=== PATIENT | female | born 1940 | race Caucasian/White ===

== ENCOUNTER → 2018-12-08 18:09 | Outpatient (CLI) | payer MEDICARE ==
[2018-12-08 18:16] LABS: APPEARANCE HAZY (CLEAR); COLOR YELLOW (YELLOW); GLUCOSE 1000 mg/dL (NEGATIVE); NITRITE NEGATIVE (NEGATIVE); PROTEIN NEGATIVE (NEGATIVE); SPECIFIC GRAVITY 1.005 (1.005-1.020)
[2018-12-08 18:17] LABS: BILIRUBIN NEGATIVE (NEGATIVE); KETONE NEGATIVE (NEGATIVE); UROBILINOGEN NORMAL (NORMAL)
[2018-12-08 18:18] LABS: BACTERIA MANY /hpf (NONE SEEN); RED CELLS - URINE 0-5 /hpf (0-5)
== END | disposition home or self-care (01) ==
LOC: D.LABREF 18:09
PROVIDERS: ATTEND Family Medicine
DX: R39.15 Urgency of urination (principal); R30.9 Painful micturition, unspecified; Z87.440 Personal history of urinary (tract) infections

== ENCOUNTER 2019-02-22 22:15 | Inpatient (IN) | payer MEDICARE ==
[~2019-02-22] VITALS: Ht 165.1 cm; Wt 91.2 kg
--- NOTE | 2019-02-22 22:30 | NUR ---
PT CAREGIVER STATES PT WAS TOLD HGB WAS 9.0 AND IF THE PT BECAME SYMPTOMATIC TO REPORT TO ER. CAREGIVER STATES, "SHE HAS BEEN SLEEPING ALL DAY AND INCONTINENT AND SHE USUALLY TAKES CARE OF THAT HERSELF.".
[2019-02-22 23:15] VITALS: BP 187/59
[2019-02-22 23:25] LABS: BASOPHILS 0.1 % (0-2); EOSINOPHILS 0.6 % (0-7); HEMATOCRIT 29.7 % (36.0-48.0); HEMOGLOBIN 9.4 g/dL (12-16); IMMATURE GRANULOCYTES 0.2 % (0-5); LYMPHOCYTES 16.4 % (15-50); MCHC 31.6 g/dL (31.0-37.0); MEAN PLATELET VOLUME 8.9 fL (7.4-10.4); MONOCYTES 8.1 % (2-11); NEUTROPHILS 74.6 % (40-80); PLATELET COUNT 128 10x3/uL (130-400); RBC 2.94 10x6/uL (4.00-5.40); RDW 15.6 % (11.5-14.5)
[2019-02-22 23:44] LABS: ALBUMIN 3.1 g/dL (3.4-5.0); ANION GAP 11.8 mmol/L (8-16); BILIRUBIN - TOTAL 2.07 mg/dL (0.2-1.3); CALCIUM 8.8 mg/dL (8.5-10.1); CARBON DIOXIDE 28.6 mmol/L (21.0-32.0); CREATININE - SERUM 1.6 mg/dL (0.6-1.3); POTASSIUM - SERUM 4.4 mmol/L (3.5-5.1); PROTEIN - SERUM 6.7 g/dL (6.4-8.2)
[2019-02-23] VITALS (7 sets, daily range): BP systolic 127–199; BP diastolic 53–91; Ht 165.1 cm; Wt 91.2 kg
[2019-02-23 00:14] LABS: APPEARANCE CLOUDY (CLEAR); BILIRUBIN NEGATIVE (NEGATIVE); COLOR YELLOW (YELLOW); GLUCOSE 1000 mg/dL (NEGATIVE); KETONE NEGATIVE (NEGATIVE); NITRITE POSITIVE (NEGATIVE); PROTEIN 3+ mg/dL (NEGATIVE); SPECIFIC GRAVITY 1.015 (1.005-1.020); UROBILINOGEN NORMAL (NORMAL)
[2019-02-23 00:15] LABS: BACTERIA MANY /hpf (NEGATIVE); EPITHELIAL CELLS 0-5 /hpf (0-5); RED CELLS - URINE 0-5 /hpf (0-5)
[2019-02-23 00:34] LABS: UDS - AMPHET NEGATIVE QUAL (NEGATIVE); UDS - BARB NEGATIVE QUAL (NEGATIVE); UDS - BENZO NEGATIVE QUAL (NEGATIVE); UDS - COCAINE NEGATIVE QUAL (NEGATIVE); UDS - OPIATE NEGATIVE QUAL (NEGATIVE); UDS - PCP NEGATIVE QUAL (NEGATIVE); UDS - THC NEGATIVE QUAL (NEGATIVE)
--- NOTE | 2019-02-23 02:22 | NUR ---
FAMILY MEMEBER REJI BROOKE [phone]
[2019-02-23] MEDS ORDERED: APAP325 MG PO (04:29)
[2019-02-23] MEDS ORDERED: ALBUTEROL SULF8.5 GM INH (04:30)
[2019-02-23] MEDS ORDERED: ZYLOPRIM100 MG PO (04:31)
[2019-02-23] MEDS ORDERED: BAYER CHEWABLE81 MG PO (04:32)
[2019-02-23] MEDS ORDERED: LIPITOR80 MG PO (04:33)
[2019-02-23] MEDS ORDERED: CAPTOPRIL50 MG PO (04:34)
[2019-02-23] MEDS ORDERED: COREG 3.1253.125 MG PO (04:34)
[2019-02-23] MEDS ORDERED: PLAVIX75 MG PO (04:35)
[2019-02-23] MEDS ORDERED: PEPCID40 MG PO (04:35)
[2019-02-23] MEDS ORDERED: FERROUS FUMARA324 MG PO (04:37)
[2019-02-23] MEDS ORDERED: LASIX20 MG PO (04:38)
[2019-02-23] MEDS ORDERED: GLUCOTROL 5 MG T5 MG PO (04:38)
[2019-02-23] MEDS ORDERED: ANUSOL-HC25 MG RC (04:40)
[2019-02-23] MEDS ORDERED: LEVEMIR FL100 UNIT/1 SC (04:41)
[2019-02-23] MEDS ORDERED: CLARITIN 10 MG10 MG PO (04:42)
[2019-02-23] MEDS ORDERED: LEVOXYL100 MCG PO (04:42)
[2019-02-23] MEDS ORDERED: NITROSTAT0.4 MG SL (04:44)
[2019-02-23] MEDS ORDERED: PROTONIX20 MG PO (04:45)
[2019-02-23] MEDS ORDERED: NYSTATIN OINTME15 GM TOPICAL (04:45)
[2019-02-23] MEDS ORDERED: HEALTHYLAX17 GM PO (04:46)
[2019-02-23] MEDS ORDERED: LIQUITEARS15 ML EACH EYE (04:49)
[2019-02-23] MEDS ORDERED: K-DUR20 MEQ PO (04:50)
[2019-02-23] MEDS ORDERED: PROMETH-CODEIN 65 ML PO (04:53)
[2019-02-23] MEDS ORDERED: ZANAFLEX2 M1 PO (04:55)
[2019-02-23] MEDS ORDERED: ULTRAM50 MG PO (04:57)
[2019-02-23] MEDS ORDERED: KENALOG IN ORABA5 GM TOPICAL (04:58)
--- NOTE | 2019-02-23 07:15 | NUR ---
PT RESTING PEACEFULLY WHEN I ENTERED, BREATHS EVEN REGUALR AND UNLABORED. NO SIGNS OR SYMPTOMS OF ACUTE DISTRESS NOTED AT THIS TIME. NO FAMILY PRESENT AT BEDSIDE. CL IN REACH, SRX2.
--- NOTE | 2019-02-23 08:35 | NUR ---
I CONCUR WITH JUNIOR ELECTRICAL ENGINEER ASSESSMENT OF THIS PATIENT.
--- NOTE | 2019-02-23 09:01 | NUR ---
PT USES WRITING BOARD AND ASL FOR COMMUNICATION, NO COPLAINTS OR CONCERNS THIS AM. ALL QUESTIONS ANSWERED TO THE BEST OF MY ABILITY. NO FAMLILY AT BEDSIDE, PT EATING BREAKFAST.
--- NOTE | 2019-02-23 10:09 | NUR ---
PT RESTING PEACEFULLY AFTER BREAKFAST, NO COMPLAINTS OR CONCERNS. NO FAMILY AT BEDSIDE. CL IN REACH, SRX2.
--- NOTE | 2019-02-23 11:11 | NUR ---
PTS BLOOD SUGAR 316, ATTEMTPED TO CALL DR TO RESTART HER INSULIN, WAS UNABLE TO REACH, WILL TRY AGAIN.
[2019-02-23 13:37] LABS: APTT 24.4 SECONDS (22.8-39.4); INR 1.14 (0.85-1.17); PROTIME 14.1 SECONDS (11.6-15.0)
[2019-02-23 13:44] LABS: % SATURATION 9 % (15-55); IRON 20 ug/dl (35-150); TOTAL IRON BIND CAPACITY 205 ug/dl (260-445); UNSAT IRON BIND CAPACITY 185 ug/dl (150-375)
[2019-02-23 14:09] LABS: CKMB 0.6 U/L (0.0-3.6); TROPONIN-I 0.035 ng/mL (0.000-0.060)
--- NOTE | 2019-02-23 14:17 | NUR ---
PT CONTINUES TO EXHIBIT LETHAGERY. WAKES EASILY TO SMALL SHAKES AND COMMUICATES WITHOUT DIFFICULTY BUT IMMEDIATELY DOZES BACK TO SLEEP. NO COMPLAITNS OR CONCERNS, ALL QUESTIONS ANSWERED TO THE BEST OF MY ABILITY. AID ASSISTED PT IN CLEANING FROM BED. PT NOW CLEAN AND DRY, ONCE AGAIN RESTING PEACEFULLY. CL IN REACH, SRX2.
[2019-02-23 15:17] LABS: BASOPHILS 0.1 % (0-2); EOSINOPHILS 1.2 % (0-7); HEMATOCRIT 26.2 % (36.0-48.0); HEMOGLOBIN 8.2 g/dL (12-16); IMMATURE GRANULOCYTES 0.3 % (0-5); LYMPHOCYTES 21.5 % (15-50); MCH 31.8 pg (26.0-34.0); MCHC 31.3 g/dL (31.0-37.0); MCV 101.6 fL (80.0-100.0); MONOCYTES 9.3 % (2-11); NEUTROPHILS 67.6 % (40-80); PLATELET COUNT 120 10x3/uL (130-400); RBC 2.58 10x6/uL (4.00-5.40); RDW 15.8 % (11.5-14.5)
[2019-02-23 15:18] LABS: WBC 6.8 10x3/uL (4.8-10.8)
[2019-02-23 15:19] LABS: ANION GAP 14.1 mmol/L (8-16); CALCIUM 8.2 mg/dL (8.5-10.1); CARBON DIOXIDE 26.7 mmol/L (21.0-32.0); CREATININE - SERUM 1.7 mg/dL (0.6-1.3); POTASSIUM - SERUM 3.8 mmol/L (3.5-5.1)
--- NOTE | 2019-02-23 17:15 | NUR ---
PT HAS BEEN SLEEPING , EASILY ARROUSABLE TO TOUCH, BUT QUICKLY FALLS BACK TO SLEEP. SPOKE WITH FAMILY THEY STATE THEY'LL COME VISIT HER TOMORROW. CL IN REACH, SRX2. NO FAMILY AT BEDSIDE.
--- NOTE | 2019-02-23 18:27 | NUR ---
CHANGED PTS LINNENS, NOW CLEAN AND DRY. PT HAD SOAKED MOST OF THE BED IN FOWL SMELLING URINE. PT STILL HAVING TROUBLE STAYING AWAY THOUGH WHEN SHE IS AWAKE SHE EASILY ANSWERES QUESTIONS. INFORMED HER HER FAMILY WOULD VISIT TOMORROW. CL IN REACH, SRX2, BED LOW AND LOCKED, ALARM ON. PT REFUSED SUPPER STATING NOT HUNGRY.
--- NOTE | 2019-02-23 19:45 | NUR ---
PT RESTING IN BED ALERT AND ORIENTED X4. PT VITALS STABLE AT THIS TIME. PT COMPLAINS OF SORE THROAT AND HAS A CRACKLING COUGH. PT COMPLAINS OF PAIN GENERALIZED 7/. ST PT UP ON THE SIDE OF THE BED AND TRIEN TO STAND. PT WASN'T ABLE TO STAND LONG COMPLAINS OF PAIN IN LEGS. LOWER BILAT EXTREMITIES PITTING +2 EDEMA. NO S/S AND SYMPTOMS OF DISTRESS AT THIS TIME. BED LOW CALL LIGHT WITHIN REACH WILL CONTINUE TO MONITOR.
[2019-02-23 19:53] LABS: CKMB 0.2 U/L (0.0-3.6); CREATINE KINASE 49 UL (21-215); TROPONIN-I 0.017 ng/mL (0.000-0.060)
[2019-02-24] VITALS: BP 149/63
[2019-02-24 00:53] LABS: CKMB 0.5 U/L (0.0-3.6); CREATINE KINASE 48 UL (21-215); TROPONIN-I 0.028 ng/mL (0.000-0.060)
--- NOTE | 2019-02-24 00:59 | NUR ---
PT COUGHING WITH A WET NON-PRODUCTIVE HACK. WILL CONTINUE TO MONITOR.
--- NOTE | 2019-02-24 02:44 | NUR ---
I have reviewed this patient and I concur with the Shift Assessment completed by the Licensed Practical Nurse today this shift.
[2019-02-24 04:00] VITALS: BP 150/63
[2019-02-24 05:36] LABS: BASOPHILS 0.1 % (0-2); EOSINOPHILS 1.9 % (0-7); HEMATOCRIT 25.9 % (36.0-48.0); HEMOGLOBIN 8.4 g/dL (12-16); IMMATURE GRANULOCYTES 0.1 % (0-5); LYMPHOCYTES 29.3 % (15-50); MCH 32.3 pg (26.0-34.0); MCHC 32.4 g/dL (31.0-37.0); MEAN PLATELET VOLUME 9.1 fL (7.4-10.4); MONOCYTES 11.2 % (2-11); NEUTROPHILS 57.4 % (40-80); PLATELET COUNT 130 10x3/uL (130-400); RDW 15.7 % (11.5-14.5); WBC 8.4 10x3/uL (4.8-10.8)
[2019-02-24 05:59] LABS: MCV 99.6 fL (80.0-100.0)
[2019-02-24 06:11] LABS: ALBUMIN 2.7 g/dL (3.4-5.0); ANION GAP 13.4 mmol/L (8-16); BILIRUBIN - TOTAL 1.08 mg/dL (0.2-1.3); CALCIUM 8.5 mg/dL (8.5-10.1); CARBON DIOXIDE 26.5 mmol/L (21.0-32.0); CREATININE - SERUM 1.6 mg/dL (0.6-1.3); MAGNESIUM - SERUM 1.8 mg/dL (1.8-2.4); POTASSIUM - SERUM 3.9 mmol/L (3.5-5.1); PROTEIN - SERUM 6.2 g/dL (6.4-8.2)
--- NOTE | 2019-02-24 07:25 | NUR ---
REPORT RECEIVED. WILL CONTINUE WITH POC. PT CURRENTLY LYING SEMI FOWLERS. CALL LIGHT W/I REACH. PT IS ASLEEP WITH EYES CLOSED AT THIS TIME. RR EVEN AND UNLABORED ON 2L 02. L.HAND PIV IS SALINE LOCKED. PT DENIES ANY NEEDS AT THIS TIME. NO S/S OF DISTRESS NOTED. WILL CTM.
[2019-02-24 08:50] VITALS: BP 149/75
[2019-02-24 13:42] VITALS: BP 132/57
--- NOTE | 2019-02-24 17:07 | NUR ---
PREVIOUS PIV INFILTRATED. INITIATED NEW PIV TO THE LEFT FOREARM 22GA X1 ATTEMPT. PT TOLERATED WELL. FLUSHED WITH 10ML NS TO CONFIRM PATENCY. IRON CURRENTLY INFUSING. WILL CTM.
[2019-02-24 18:26] VITALS: BP 138/52
--- NOTE | 2019-02-24 19:40 | NUR ---
PT SETTING UP IN BED ALERT AND ORIENTED X4. RR EVEN AND UNLABORED AT THIS TIME. CHUN FARIA CALLED FOR PT'S HARSH PRODUCTIVE COUGH. PT COMPLAINS THAT COUGH IS HURTING CHEST AND THROAT. NEW ORDERS ESTABLISHED. SEE MAR. AT BEDSIDE AND IS ALSO DEAF. BED LOW CALL LIGHT WITHIN REACH. WILL CONTINUE TO MONITOR.
[2019-02-24 20:00] VITALS: BP 154/76
[2019-02-25] VITALS: BP 142/62
--- NOTE | 2019-02-25 02:53 | NUR ---
PT RESTING IN BED WITH EYES CLOSED RR EVEN AND UNLABORED. AT BEDSIDE. NO S/S OF DISTRESS. BED LOW CALL LIGHT WITHIN REACH WILL CONTINUE TO MONITOR.
--- NOTE | 2019-02-25 03:05 | NUR ---
I have reviewed this patient and I concur with the Shift Assessment completed by the Licensed Practical Nurse today this shift.
[2019-02-25 04:30] VITALS: BP 150/54
[2019-02-25 05:55] LABS: BASOPHILS 0.2 % (0-2); EOSINOPHILS 4.8 % (0-7); HEMATOCRIT 23.8 % (36.0-48.0); HEMOGLOBIN 7.8 g/dL (12-16); IMMATURE GRANULOCYTES 0.2 % (0-5); LYMPHOCYTES 25.4 % (15-50); MCHC 32.8 g/dL (31.0-37.0); MONOCYTES 10.3 % (2-11); NEUTROPHILS 59.1 % (40-80); PLATELET COUNT 121 10x3/uL (130-400); RBC 2.44 10x6/uL (4.00-5.40); RDW 15.8 % (11.5-14.5)
[2019-02-25 06:15] LABS: ALBUMIN 2.5 g/dL (3.4-5.0); ANION GAP 10.6 mmol/L (8-16); BILIRUBIN - TOTAL 0.95 mg/dL (0.2-1.3); CALCIUM 7.7 mg/dL (8.5-10.1); CARBON DIOXIDE 27.7 mmol/L (21.0-32.0); CREATININE - SERUM 1.8 mg/dL (0.6-1.3); MAGNESIUM - SERUM 1.8 mg/dL (1.8-2.4); POTASSIUM - SERUM 4.3 mmol/L (3.5-5.1); PROTEIN - SERUM 5.5 g/dL (6.4-8.2)
[2019-02-25 06:32] LABS: MCV 97.5 fL (80.0-100.0)
--- NOTE | 2019-02-25 08:15 | NUR ---
ALERT AND ORIENTED.PT IS DEAF. 02 2 L/M PER NC.LEFT ARM SL. SR 85 ON TELEMERTY. SR UP WITH CALL LIGHT IN REACH. WILL MONITOR
[2019-02-25 08:36] VITALS: BP 155/67
[2019-02-25 12:30] VITALS: BP 141/64
--- NOTE | 2019-02-25 14:35 | MORECARE ---
CASE MANAGEMENT DISCHARGE SUMMARY PATIENT: ERVIN MORRELL UNIT: [id number] ADM DATE: 02/23/19 AGE: 78 : 41 SEX: F ROOM/BED: D.2287 AUTHOR: NANCI MELCHOR PHYSICIAN: REFERRING PHYSICIAN: AZAR BURGESS MD DATE OF SERVICE: 02/25/19 Discharge Plan Patient Name: ERVIN MORRELL Facility: [facility]:[place] : 1940 Planned Disposition: Home Anticipated Discharge Date: Discharge Date: Expected LOS: Initial Reviewer: [email or web address] Initial Review Date: 02/25/2019 Generated: 02/25/19 3:34 pm DCPIA - Discharge Planning Initial Assessment Updated by [id number]: Kayleen Romero on 02/25/19 2:33 pm * PCP VERSER * Preadmission Environment Home with Family * ADLs Independent * Additional services required to return to the preadmission environment? No * Can the patient safely return to the preadmission environment? Yes * Has this patient been hospitalized within the prior 30 days at any hospital? No Patient Name: ERVIN MORRELL Page [id number] at 1435 All edits/amendments must be made on the electronic document DICTATION DATE: 02/25/191433 PER DIEM REGISTERED NURSE: MIKEL 02/25/19 143 RPT#: [id number] DC DATE: STATUS: ADM IN [facility] [address] [place] [address] END OF REPORT
--- NOTE | 2019-02-25 14:44 | MORECARE ---
CASE MANAGEMENT DISCHARGE SUMMARY PATIENT: ERVIN MORRELL UNIT: [id number] ADM DATE: 02/23/19 AGE: 78 : 41 SEX: F ROOM/BED: D.4068 AUTHOR: NANCI MELCHOR PHYSICIAN: REFERRING PHYSICIAN: AZAR BURGESS MD DATE OF SERVICE: 02/25/19 Discharge Plan Patient Name: ERVIN MORRELL Facility: [facility]:[place] : 1940 Planned Disposition: Home Anticipated Discharge Date: Discharge Date: Expected LOS: Initial Reviewer: [email or web address] Initial Review Date: 02/25/2019 Generated: 02/25/19 3:43 pm Comments DCP- Discharge Planning Updated by [email or web address]: Kayleen Romero on 02/25/19 1:[address] Patient Name: ERVIN MORRELL Admission Status: ER Accout number: [id number] Admission Date: 02-23-2019 : 1940 Admission Diagnosis: Attending: RAUL Current LOS: 2 Anticipated DC Date: Planned Disposition: Home Primary Insurance: MEDICARE A & B Discharge Planning Comments: CM MET WITH PATIENT AND HER AFTER EXPLAINING CM ROLE AND OBTAINING WRITTEN CONSENT. PATIENT AND HER ARE BOTH DEAF. I COMMUNICATED WITH THEM BY WRITING ON A NOTE PAD BACK AND FORTH. DENIES ANY NEEDS FOR EQUIPMENT, HH OR REHAB. BY LOOKING AT HER MEDICAL CHART SHE WOULD PROBABLY BENEFIT FROM REHAB OR HOME HEALTH IF SHE IS AGREEABLE. SHE IS VERY DROWSY AT THIS TIME. CM WILL FOLLOW AND ASSIST NEEDED. Certified Medical Transcriptionist: Kayleen Romero DCPIA - Discharge Planning Initial Assessment Updated by [id number]: Kayleen Romero on 02/25/19 2:33 pm * PCP VERSER * Preadmission Environment Home with Family * ADLs Independent * Additional services required to return to the preadmission environment? No * Can the patient safely return to the preadmission environment? Yes * Has this patient been hospitalized within the prior 30 days at any hospital? No Last DP export: 02/25/19 1:35 Patient Name: ERVIN MORRELL Page [id number] at 1444 All edits/amendments must be made on the electronic document DICTATION DATE: 02/25/191442 HOME CARE COORDINATOR: MIKEL 02/25/191442 RPT#: [id number] [place] DATE: STATUS: ADM IN [facility] [address] [place] [address] END OF REPORT
--- NOTE | 2019-02-25 15:36 | MORECARE ---
CASE MANAGEMENT DISCHARGE SUMMARY PATIENT: ERVIN MORRELL UNIT: [id number] ADM DATE: 02/23/19 AGE: 78 : 41 SEX: F ROOM/BED: D.9397 AUTHOR: RUIZDOC PHYSICIAN: REFERRING PHYSICIAN: AZAR BURGESS MD DATE OF SERVICE: 02/25/19 Discharge Plan Patient Name: ERVIN MORRELL Facility: [facility]:[place] : 1940 Planned Disposition: Home Anticipated Discharge Date: Discharge Date: Expected LOS: Initial Reviewer: [email or web address] Initial Review Date: 02/25/2019 Generated: 02/25/19 4:36 pm Comments DCP- Discharge Planning Updated by [email or web address]: Kayleen Romero on 02/25/19 2:[address] Patient Name: ERVIN MORRELL Admission Status: ER Accout number: [id number] Admission Date: 02-23-2019 : 1940 Admission Diagnosis: Attending: RAUL Current LOS: 2 Anticipated DC Date: Planned Disposition: Home Primary Insurance: MEDICARE A & B Discharge Planning Comments: CM MET WITH PATIENT AND HER AFTER EXPLAINING CM ROLE AND OBTAINING WRITTEN CONSENT. PATIENT AND HER ARE BOTH DEAF. I COMMUNICATED WITH THEM BY WRITING ON A NOTE PAD BACK AND FORTH. DENIES ANY NEEDS FOR EQUIPMENT, HH OR REHAB. BY LOOKING AT HER MEDICAL CHART SHE WOULD PROBABLY BENEFIT FROM REHAB OR HOME HEALTH IF SHE IS AGREEABLE. SHE IS VERY DROWSY AT THIS TIME. CM WILL FOLLOW AND ASSIST NEEDED. Stock Transfer Clerk: Kayleen Romero Appended by Kayleen Romero on 02/25/2019 15:30 RUNWAY MODEL: I SPOKE WITH PATIENT'S SON BRAYAN MORRELL AND HE STATES WOULD LIKE HIS MOM TO GO TO [facility] WHEN DISCHARGED. DCPIA - Discharge Planning Initial Assessment Updated by [id number]: Kayleen Romero on 02/25/19 2:33 pm * PCP VERSER * Preadmission Environment Home with Family * ADLs Independent * Additional services required to return to the preadmission environment? No * Can the patient safely return to the preadmission environment? Yes * Has this patient been hospitalized within the prior 30 days at any hospital? No External Providers External Provider: [facility] Next Contact Date: Service Request Date: Service Type: Resolution: Reviewer: Comments: Coverage Notice Reviewer: [id number] Linda Romero Notice Issued Date-Time: 02/25/2019 15:30 Notice Type: Patient Choice Letter Notice Delivered To: Family Member Relationship to Patient: Son Senior Clinician Name: BRAYAN MORRELL Delivery Method: PHONE - Phone Teresita Days: Prior Verbal Notification: Recipient Understood Notice: Recipient Signature: Med Rec Note Co-signed by Attending: Coverage Notice Comment: VERBAL LIA FOR [facility] Last DP export: 02/25/19 1:44 Patient Name: ERVIN MORRELL Page 00426 at 1536 All edits/amendments must be made on the electronic document DICTATION DATE: 02/25/19 153 ASSEMBLER HYDRAULIC BACKHOE: MIKEL 02/25/19 1535 RPT#: [id number] DC DATE: STATUS: ADM IN [facility] [address] [place] [address] END OF REPORT
[2019-02-25 16:07] VITALS: BP 153/49
[2019-02-25 20:03] VITALS: BP 117/45
--- NOTE | 2019-02-25 20:22 | NUR ---
INITIAL ROUNDS COMPLETED AT 191 HRS. PT RESTING WITH EYES CLOSED. RESP EVEN AND REGULAR. AT BEDSIDE. BOTH AND PT ARE DEAF. ASSESSMENT COMPLETED AT 1954 HRS. INFORMED PT NEEDED TO START IV BY WRITING ON SOME PAPER. PT NODDED UNDERSTANDING. SR PER CM HR 78. ALERT AND ORIENTED. DOMINGUEZ. LUNGS WITH SCATTERED RHONCH IN UPPER LOBES, DIMINISHED IN LOWER LOBES. NON-PRODUCTIVE COUGH NOTED. 1+ PEDAL EDEMA NOTED. PT INCONTINENT OF URINE. INCONTINENT CARE DONE. NEW IV STARTED WITH ATTEMPT X2 #20 TO L UPPER ARM. PT TOLERATED ACTIVITY WELL. SR UP X3, CALL LIGHT WITHIN REACH.
--- NOTE | 2019-02-25 21:45 | NUR ---
PM SNACK SERVED. PM MEDS IGVEN INCLUDING 6 UNITS REG INSULIN FOR BS OF 270. AT BEDSIDE.
--- NOTE | 2019-02-26 00:17 | NUR ---
PT WATCHING TV. NO DISTRESS NOTED. SR UP X2,CALL LIGHT WITHIN REACH.
[2019-02-26 00:30] VITALS: BP 147/55
--- NOTE | 2019-02-26 02:02 | NUR ---
ROCEPHIN 1GM IVPB INITIATED. PT AWAKE, NO DISTRESS NOTED. SR UP X2, CALL LIGHT WITHIN REACH.
--- NOTE | 2019-02-26 04:12 | NUR ---
PT INCONTINENT OF URINE. INCONTINENT CARE DONE. PT TOLERATED ACTIVITY WELL. SR UP X2, CALL LIGHT WITHIN REACH.
[2019-02-26 04:46] VITALS: BP 166/52
--- NOTE | 2019-02-26 05:19 | NUR ---
PT INCONTINENT OF URINE. INCONTINENT CARE DONE. PT TOLERATED ACTIVITY WELL.
--- NOTE | 2019-02-26 06:50 | NUR ---
PT INCONTINENT OF URINE X3 DURING SHIFT. AM FSBS 181. 2 UNITS REG I NSULIN GIVEN SUB-Q TO R ARM. NEEDS MET; WILL CONTINUE TO MONITOR.
[2019-02-26 07:04] LABS: ALBUMIN 2.4 g/dL (3.4-5.0); ANION GAP 10.8 mmol/L (8-16); BILIRUBIN - TOTAL 0.6 mg/dL (0.2-1.3); CALCIUM 8.4 mg/dL (8.5-10.1); CARBON DIOXIDE 26.1 mmol/L (21.0-32.0); CREATININE - SERUM 1.5 mg/dL (0.6-1.3); MAGNESIUM - SERUM 1.9 mg/dL (1.8-2.4); POTASSIUM - SERUM 3.9 mmol/L (3.5-5.1)
[2019-02-26 07:19] LABS: BASOPHILS 0 % (0-2); EOSINOPHILS 3.1 % (0-7); HEMATOCRIT 22.9 % (36.0-48.0); IMMATURE GRANULOCYTES 0.3 % (0-5); MCH 31.4 pg (26.0-34.0); MCHC 32.3 g/dL (31.0-37.0); MEAN PLATELET VOLUME 9.4 fL (7.4-10.4); MONOCYTES 8.4 % (2-11); NEUTROPHILS 55.2 % (40-80); PLATELET COUNT 131 10x3/uL (130-400); RBC 2.36 10x6/uL (4.00-5.40); RDW 15.2 % (11.5-14.5); WBC 6.2 10x3/uL (4.8-10.8)
[2019-02-26 07:23] LABS: HEMOGLOBIN 7.4 g/dL (12-16)
--- NOTE | 2019-02-26 07:50 | NUR ---
ALERT AND ORIENTED. PT IS DEAF. TELEMERTY SHOWS SR 77. 02 AT 2 L/M PER NC.2PLUS EDEMA TO FEET. SR UP WITH CALL LIGHT IN REACH. WILL MONITOR
[2019-02-26 08:00] VITALS: BP 150/51
[2019-02-26 12:00] VITALS: BP 143/56
--- NOTE | 2019-02-26 15:36 | NUR ---
LYING QUIETLY WITH EYES CLOSED, NO DISTRESS NOTED. TELEMERY SHOWING SR 74
[2019-02-26 16:00] VITALS: BP 146/60
--- NOTE | 2019-02-26 16:00 | NUR ---
rehab prescreen: this patient has medicare insurance and walked 6 feet 2 days ago and hasnt perticipated with therapy since. admitted with AMS and severe UTI. her H/H is critical low as per am labs. Patient will need to be able to tolerate the 3 hours therapy required by medicare guidelines. Will monitor her progress and check on her stability. thank you for this eval. mona quinn lpn clinical liasion
--- NOTE | 2019-02-26 20:08 | NUR ---
INITIAL ROUNDS COMPLETED AT 1910 HRS. PT DENIED ANY DISCOMFORT. ASSESSMENT COMPLETED AT 1950 HRS. VSS. SR PER CM HR 77. ALERT AND ORIENTED. PT IS DEAF. LUNGS DIMINISHED IN BASES BILAT. ABD SOFT WITH ACTIVE BS NOTED. 2+ EDEMA TO FEET. PT INCONTINENT OF URINE. INCONTINENT CARE DONE. PT TURNED SELF WITHOUT DIFFICULTY. SPOUSE ALSO DEAF. SR UP X2, CALL LIGHT WITHIN REACH.
[2019-02-26 20:30] VITALS: BP 160/58
--- NOTE | 2019-02-26 21:39 | NUR ---
FSBS 230. 4 UNITS REG INSULIN GIVEN SUB-Q TO UPPER L ARM PER S/S. PM MEDS GIVEN. PT SWALLOWED WITHOUT DIFFICULTY. SR UP X2, CALL LIGHT WITHIN REACH.
[2019-02-27 00:13] VITALS: BP 157/48
--- NOTE | 2019-02-27 00:49 | NUR ---
PT RESTING WITH EYES CLOSED. RESP EVEN AND REGULAR. SR UP X2, CALL LIGHT WITHIN REACH.
--- NOTE | 2019-02-27 02:27 | NUR ---
PT HAS C/O CORREA. ULTRAM 50MG PO GIVEN. PT INCONTINENT OF URINE. INCONTINENT CARE DONE. SR UP X3, CALL LIGHT WITHIN REACH.
--- NOTE | 2019-02-27 04:19 | NUR ---
PT RESTING WITH EYES CLOSED. RESP EVEN AND REGULAR. SR UP X3, CALL LIGHT WITHIN REACH.
[2019-02-27 04:26] VITALS: BP 142/50
--- NOTE | 2019-02-27 06:08 | NUR ---
VSS THROUGHOUT NIGHT. SR PER CM. PT MOTIONED THAT ULTRAM ALLEVIATED CORREA. NEEDS MET; WILL CONTINUE TO MONITOR.
--- NOTE | 2019-02-27 06:28 | NUR ---
PT INCONTINENT OF URINE. INCONTINENT CARE DONE. PT TOLERATED ACTIVITY WELL. AM FSBS 135. NO COVERAGE NEEDED. SR UP X2, CALL LIGHT WITHIN REACH.
[2019-02-27 06:31] LABS: BASOPHILS 0.2 % (0-2); EOSINOPHILS 3.9 % (0-7); HEMATOCRIT 23.8 % (36.0-48.0); HEMOGLOBIN 7.8 g/dL (12-16); IMMATURE GRANULOCYTES 0.3 % (0-5); LYMPHOCYTES 31.6 % (15-50); MCH 32.9 pg (26.0-34.0); MCHC 32.8 g/dL (31.0-37.0); MONOCYTES 8.6 % (2-11); NEUTROPHILS 55.4 % (40-80); PLATELET COUNT 150 10x3/uL (130-400); RBC 2.37 10x6/uL (4.00-5.40); RDW 15.4 % (11.5-14.5); WBC 6.4 10x3/uL (4.8-10.8)
[2019-02-27 06:36] LABS: MCV 100.4 fL (80.0-100.0)
[2019-02-27 06:48] LABS: ALBUMIN 2.3 g/dL (3.4-5.0); ANION GAP 8.2 mmol/L (8-16); BILIRUBIN - TOTAL 0.46 mg/dL (0.2-1.3); CALCIUM 8.4 mg/dL (8.5-10.1); CARBON DIOXIDE 30.1 mmol/L (21.0-32.0); CREATININE - SERUM 1.5 mg/dL (0.6-1.3); MAGNESIUM - SERUM 2.1 mg/dL (1.8-2.4); POTASSIUM - SERUM 4.3 mmol/L (3.5-5.1)
--- NOTE | 2019-02-27 07:00 | NUR ---
PT LYING IN BED. EYES CLOSED. CHEST RISING AND FALLING. IN RECLINER CHAIR ASLEEP. PT IS DEAF. PT WEARING O2 AT 2L VIA NC. 86 SR ON TELEMETRY. BED LOW. CL IN REACH. WILL CONTINUE TO MONITOR.
[2019-02-27 10:42] VITALS: BP 160/50
--- NOTE | 2019-02-27 11:07 | NUR ---
I have reviewed this patient and I concur with the Shift Assessment completed by the Licensed Practical Nurse today this shift.
--- NOTE | 2019-02-27 11:56 | NUR ---
Rehab Note- Acute Inpatient Rehab prescreen order received. The patient and family are planning for her to discharge to [facility] where her daughter works and plan to transition her into a LTC resident. Spoke to FILI Fuller. Thank you for this referral! Rachael Stein RN Clinical Liaison, [facility] Rehab
[2019-02-27] MEDS ORDERED: CIPRO500 MG PO (12:23)
--- NOTE | 2019-02-27 12:54 | MORECARE ---
CASE MANAGEMENT DISCHARGE SUMMARY PATIENT: ERVIN MORRELL UNIT: [id number] ADM DATE: 02/23/19 AGE: 78 : 41 SEX: F ROOM/BED: D.5084 AUTHOR: RUIZDOC PHYSICIAN: REFERRING PHYSICIAN: AZAR BURGESS MD DATE OF SERVICE: 02/27/19 Discharge Plan Patient Name: ERVIN MORRELL Facility: [facility]:[place] : 1940 Planned Disposition: [facility] Facility Anticipated Discharge Date: 02/27/19 Discharge Date: Expected LOS: 4 Initial Reviewer: [email or web address] Initial Review Date: 02/25/2019 Generated: 02/27/19 1:54 pm DCP- Discharge Planning Updated by [id number]: Kayleen Romero on 02/25/19 2:[address] Patient Name: ERVIN MORRELL Admission Status: ER Accout number: [id number] Admission Date: 02-23-2019 : 1940 Admission Diagnosis: Attending: RAUL Current LOS: 2 Anticipated DC Date: Planned Disposition: Home Primary Insurance: MEDICARE A & B Discharge Planning Comments: CM MET WITH PATIENT AND HER AFTER EXPLAINING CM ROLE AND OBTAINING WRITTEN CONSENT. PATIENT AND HER ARE BOTH DEAF. I COMMUNICATED WITH THEM BY WRITING ON A NOTE PAD BACK AND FORTH. DENIES ANY NEEDS FOR EQUIPMENT, HH OR REHAB. BY LOOKING AT HER MEDICAL CHART SHE WOULD PROBABLY BENEFIT FROM REHAB OR HOME HEALTH IF SHE IS AGREEABLE. SHE IS VERY DROWSY AT THIS TIME. CM WILL FOLLOW AND ASSIST NEEDED. Tube Bender: Kayleen Romero Appended by Kayleen Romero on 02/25/2019 15:30 FIELD COORDINATOR: I SPOKE WITH PATIENT'S SON BRAYAN MORRELL AND HE STATES WOULD LIKE HIS MOM TO GO TO [facility] WHEN DISCHARGED. DCPIA - Discharge Planning Initial Assessment Updated by [email or web address]: Kayleen Romero on 02/25/19 2:33 pm * PCP VERSER * Preadmission Environment Home with Family * ADLs Independent * Additional services required to return to the preadmission environment? No * Can the patient safely return to the preadmission environment? Yes * Has this patient been hospitalized within the prior 30 days at any hospital? No Coverage Notice Reviewer: [id number] Linda Romero Notice Issued Date-Time: 02/25/2019 15:30 Notice Type: Patient Choice Letter Notice Delivered To: Family Member Relationship to Patient: Son Drug Abuse Social Worker Name: BRAYAN MORRELL Delivery Method: PHONE - Phone Teresita Days: Prior Verbal Notification: Recipient Understood Notice: Recipient Signature: Med Rec Note Co-signed by Attending: Coverage Notice Comment: VERBAL LIA FOR [facility] Last DP export: 02/25/19 2:36 Patient Name: ERVIN MORRELL Page 52102 at 1254 All edits/amendments must be made on the electronic document DICTATION DATE: 02/27/19 1254 PORTAL ADMINISTRATOR: MIKEL 02/27/19 1254 RPT#: [id number] DC DATE: STATUS: ADM IN [facility] [address] [place] [address] END OF REPORT
--- NOTE | 2019-02-27 13:17 | MORECARE ---
CASE MANAGEMENT DISCHARGE SUMMARY PATIENT: ERVIN MORRELL UNIT: [id number] ADM DATE: 02/23/19 AGE: 78 : 41 SEX: F ROOM/BED: D.8365 AUTHOR: NANCI MELCHOR PHYSICIAN: REFERRING PHYSICIAN: AZAR BURGESS MD DATE OF SERVICE: 02/27/19 Discharge Plan Patient Name: ERVIN MORRELL Facility: [facility]:[place] : 1940 Planned Disposition: [facility] Facility Anticipated Discharge Date: 02/27/19 Discharge Date: Expected LOS: 4 Initial Reviewer: [email or web address] Initial Review Date: 02/25/2019 Generated: 02/27/19 2:17 pm Comments DCP- Discharge Planning Updated by [id number]: Jayro Jacobo on 02/27/19 12:[address] Patient Name: ERVIN MORRELL Encounter No: [id number] : 1940 Primary Insurance: MEDICARE A & B Anticipated DC Date: 02-27-2019 Planned Disposition: [facility] Facility External Planned Provider: [facility], MEDICARE REHAB BED DCP follow-up note: CM RECEIVED ORDER FOR INPATIENT REHAB PRESCREENING. CM MET WITH PT, PT'S SPOUSE AND PT'S SON IN ROOM. PT PROVIDED PERMISSION TO DISCUSS HER CARE AND DISCHARGE PLANNING WITH AND IN PRESENCE OF HER SPOUSE AND SON (BRAYAN). CM DISCUSSED REHAB PRESCREENING ORDER, AVAILABILITY OF HOME HEALTH, REHAB SERVICES AND MEDICAL EQUIPMENT. PT WANTS REHAB AT [facility] THE GOAL IS EVENTALLY FOR SHE AND HER SPOUSE TO HAVE CORRECTION CARE AT [facility] TOGETHER. IMPORTANT MESSAGE FROM MEDICARE PROVIDED AND EXPLAINED. CHOICE SIGNED FOR [facility]. CM FAXED DISCHARGE AND REFERRAL INFORMATION TO [facility] AT [phone]. CM NOTIFIED JAKE OF [facility] AT [phone] OF REFERRAL AND PT IS DISCHARGING TODAY. CM WAITING ADMISSION DETERMINATION FROM [facility]. Jayro Jacobo CASE MANAGEMENT DCP- Discharge Planning Updated by [id number]: Kayleen Romero on 02/25/19 2:[address] Patient Name: ERVIN MORRELL Admission Status: ER Accout number: [id number] Admission Date: 02-23-2019 : 1940 Admission Diagnosis: Attending: RAUL Current LOS: 2 Anticipated DC Date: Planned Disposition: Home Primary Insurance: MEDICARE A & B Discharge Planning Comments: CM MET WITH PATIENT AND HER AFTER EXPLAINING CM ROLE AND OBTAINING WRITTEN CONSENT. PATIENT AND HER ARE BOTH DEAF. I COMMUNICATED WITH THEM BY WRITING ON A NOTE PAD BACK AND FORTH. DENIES ANY NEEDS FOR EQUIPMENT, HH OR REHAB. BY LOOKING AT HER MEDICAL CHART SHE WOULD PROBABLY BENEFIT FROM REHAB OR HOME HEALTH IF SHE IS AGREEABLE. SHE IS VERY DROWSY AT THIS TIME. CM WILL FOLLOW AND ASSIST NEEDED. Lap Winder: Kayleen Romero Appended by Kayleen Romero on 02/25/2019 15:30 VIDEO SYSTEMS ENGINEER: I SPOKE WITH PATIENT'S SON BRAYAN MORRELL AND HE STATES WOULD LIKE HIS MOM TO GO TO [facility] WHEN DISCHARGED. DCPIA - Discharge Planning Initial Assessment Updated by [id number]: Kayleen Romero on 02/25/19 2:33 pm * PCP VERSER * Preadmission Environment Home with Family * ADLs Independent * Additional services required to return to the preadmission environment? No * Can the patient safely return to the preadmission environment? Yes * Has this patient been hospitalized within the prior 30 days at any hospital? No Coverage Notice Reviewer: [id number] - Kayleen Romero Notice Issued Date-Time: 02/25/2019 15:30 Notice Type: Patient Choice Letter Notice Delivered To: Family Member Relationship to Patient: Son Erisa Attorney Name: BRAYAN MORRELL Delivery Method: PHONE - Phone Teresita Days: Prior Verbal Notification: Recipient Understood Notice: Recipient Signature: Med Rec Note Co-signed by Attending: Coverage Notice Comment: VERBAL LIA FOR [facility] Reviewer: [id number] Linda Jacobo Notice Issued Date-Time: 02/27/2019 9:50 Notice Type: IM Discharge Notice Notice Delivered To: Patient Relationship to Patient: Erisa Attorney Name: Delivery Method: HAND - Hand Delivered Teresita Days: Prior Verbal Notification: Recipient Understood Notice: Yes Recipient Signature: Yes Med Rec Note Co-signed by Attending: Coverage Notice Comment: Reviewer: [email or web address] Linda Jacobo Notice Issued Date-Time: 02/27/2019 9:50 Notice Type: Patient Choice Letter Notice Delivered To: Patient Relationship to Patient: Erisa Attorney Name: Delivery Method: HAND - Hand Delivered Teresita Days: Prior Verbal Notification: Recipient Understood Notice: Yes Recipient Signature: Yes Med Rec Note Co-signed by Attending: Coverage Notice Comment: [facility] Last DP export: 02/27/19 11:54 a Patient Name: ERVIN MORRELL Page [phone] at 1317 All edits/amendments must be made on the electronic document DICTATION DATE: 02/27/191316 PROCESS MECHANIC: MIKEL 02/27/197 RPT#: [id number] DC DATE: STATUS: ADM IN [facility] [address] [place] [address] END OF REPORT
[2019-02-27 13:34] VITALS: BP 140/87
--- NOTE | 2019-02-27 13:59 | MORECARE ---
CASE MANAGEMENT DISCHARGE SUMMARY PATIENT: ERVIN MORRELL UNIT: [id number] ADM DATE: 02/23/19 AGE: 78 : 41 SEX: F ROOM/BED: D.9571 AUTHOR: RUIZ,DOC PHYSICIAN: REFERRING PHYSICIAN: AZAR BURGESS MD DATE OF SERVICE: 02/27/19 Discharge Plan Patient Name: ERVIN MORRELL Facility: [facility]:[place] : 1940 Planned Disposition: Shelter Facility Anticipated Discharge Date: 02/27/19 Discharge Date: Expected LOS: 4 Initial Reviewer: [id number] Initial Review Date: 02/25/2019 Generated: 02/27/19 2:59 pm Comments DCP- Discharge Planning Updated by [id number]: Jayro Jacobo on 02/27/19 12:[address] Patient Name: ERVIN MORRELL Encounter No: [id number] : 1940 Primary Insurance: MEDICARE A & B Anticipated DC Date: 02-27-2019 Planned Disposition: Shelter Facility External Planned Provider: [facility], MEDICARE REHAB BED DCP follow-up note: CM RECEIVED ORDER FOR INPATIENT REHAB PRESCREENING. CM MET WITH PT, PT'S SPOUSE AND PT'S SON IN ROOM. PT PROVIDED PERMISSION TO DISCUSS HER CARE AND DISCHARGE PLANNING WITH AND IN PRESENCE OF HER SPOUSE AND SON (BRAYAN). CM DISCUSSED REHAB PRESCREENING ORDER, AVAILABILITY OF HOME HEALTH, REHAB SERVICES AND MEDICAL EQUIPMENT. PT WANTS REHAB AT [facility] THE GOAL IS EVENTALLY FOR SHE AND HER SPOUSE TO HAVE [facility] CARE AT [facility] TOGETHER. IMPORTANT MESSAGE FROM MEDICARE PROVIDED AND EXPLAINED. CHOICE SIGNED FOR [facility]. CM FAXED DISCHARGE AND REFERRAL INFORMATION TO [facility] AT [phone]. CM NOTIFIED JAKE OF [facility] AT [phone] OF REFERRAL AND PT IS DISCHARGING TODAY. CM WAITING ADMISSION DETERMINATION FROM [facility]. Jayro Jacobo, CASE MANAGEMENT Appended by Jayro Jacobo on 02/27/2019 13:56 RADIATION THERAPIST: CM SPOKE TO JAKE AT [facility], THEY HAVE NOT YET RECEIVED FAX. CM FAXED MANUALLY TO [facility] AT [phone]. CM FAXED ELECTRONICALLY TO [facility] FAX OF [phone]. CM WAITING ADMISSION DETERMINATION FROM [facility]. Jayro Jacobo, CASE MANAGEMENT DCP- Discharge Planning Updated by [id number]: Kayleen Romero on 02/25/19 2:[address] Patient Name: ERVIN MORRELL Admission Status: ER Accout number: [id number] Admission Date: 02-23-2019 : 1940 Admission Diagnosis: Attending: RAUL Current LOS: 2 Anticipated DC Date: Planned Disposition: Home Primary Insurance: MEDICARE A & B Discharge Planning Comments: CM MET WITH PATIENT AND HER AFTER EXPLAINING CM ROLE AND OBTAINING WRITTEN CONSENT. PATIENT AND HER ARE BOTH DEAF. I COMMUNICATED WITH THEM BY WRITING ON A NOTE PAD BACK AND FORTH. DENIES ANY NEEDS FOR EQUIPMENT, HH OR REHAB. BY LOOKING AT HER MEDICAL CHART SHE WOULD PROBABLY BENEFIT FROM REHAB OR HOME HEALTH IF SHE IS AGREEABLE. SHE IS VERY DROWSY AT THIS TIME. CM WILL FOLLOW AND ASSIST NEEDED. Interior Assemblies Installer: Kayleen Roemro Appended by Kayleen Romero on 02/25/2019 15:30 RADIATION THERAPIST: I SPOKE WITH PATIENT'S SON BRAYAN MORRELL AND HE STATES WOULD LIKE HIS MOM TO GO TO [facility] WHEN DISCHARGED. DCPIA - Discharge Planning Initial Assessment Updated by [id number]: Kayleen Romero on 02/25/19 2:33 pm * PCP VERSER * Preadmission Environment Home with Family * ADLs Independent * Additional services required to return to the preadmission environment? No * Can the patient safely return to the preadmission environment? Yes * Has this patient been hospitalized within the prior 30 days at any hospital? No External Providers External Provider: [facility] Next Contact Date: Service Request Date: Service Type: Resolution: Reviewer: Comments: Coverage Notice Reviewer: [id number] - Kayleen Romero Notice Issued Date-Time: 02/25/2019 15:30 Notice Type: Patient Choice Letter Notice Delivered To: Family Member Relationship to Patient: Son Slasher Hand Name: BRAYAN MORRELL Delivery Method: PHONE - Phone Teresita Days: Prior Verbal Notification: Recipient Understood Notice: Recipient Signature: Med Rec Note Co-signed by Attending: Coverage Notice Comment: VERBAL LIA FOR [facility] Reviewer: [id number] - Jayro Jacobo Notice Issued Date-Time: 02/27/2019 9:50 Notice Type: IM Discharge Notice Notice Delivered To: Patient Relationship to Patient: Slasher Hand Name: Delivery Method: HAND - Hand Delivered Teresita Days: Prior Verbal Notification: Recipient Understood Notice: Yes Recipient Signature: Yes Med Rec Note Co-signed by Attending: Coverage Notice Comment: Reviewer: [id number] Linda Jacobo Notice Issued Date-Time: 02/27/2019 9:50 Notice Type: Patient Choice Letter Notice Delivered To: Patient Relationship to Patient: Slasher Hand Name: Delivery Method: HAND - Hand Delivered Teresita Days: Prior Verbal Notification: Recipient Understood Notice: Yes Recipient Signature: Yes Med Rec Note Co-signed by Attending: Coverage Notice Comment: [facility] Last DP export: 02/27/19 12:17 p Patient Name: ERVIN MORRELL Page [id number] at 1359 All edits/amendments must be made on the electronic document DICTATION DATE: 02/27/19 1358 DEPUTY CHIEF COUNSEL: MIKEL 02/27/19 1358 RPT#: [id number] DC DATE: STATUS: ADM IN [facility] [address] [place] [address] END OF REPORT
--- NOTE | 2019-02-27 15:09 | MORECARE ---
CASE MANAGEMENT DISCHARGE SUMMARY PATIENT: ERVIN MORRELL UNIT: [id number] ADM DATE: 02/23/19 AGE: 78 : 41 SEX: F ROOM/BED: D.2099 AUTHOR: NANCI MELCHOR PHYSICIAN: REFERRING PHYSICIAN: AZAR BURGESS MD DATE OF SERVICE: 02/27/19 Discharge Plan Patient Name: ERVIN MORRELL Facility: [facility]:[place] : 1940 Planned Disposition: Retirement Facility Anticipated Discharge Date: 02/28/19 Discharge Date: Expected LOS: 5 Initial Reviewer: [id number] Initial Review Date: 02/25/2019 Generated: 02/27/19 4:08 pm Comments DCP- Discharge Planning Updated by [id number]: Jayro Jacobo on 02/27/19 2:[address] Patient Name: ERVIN MORRELL Encounter No: [id number] : 1940 Primary Insurance: MEDICARE A & B Anticipated DC Date: 02-28-2019 Planned Disposition: Retirement Facility External Planned Provider: [facility], MEDICARE REHAB BED DCP follow-up note: CM SPOKE TO BRAYAN, PT'S SON, WHO INFORMED CM THAT JAKE OF [facility] INFORMED HIM THAT THEY ARE NOT ABLE TO ACCEPT PT TODAY AND WILL ACCEPT TOMORROW. BRAYAN HAS NOTIFIED PT AND SPOUSE IN ROOM. CM NOTIFIED CHUN LUO. FOR DISCHARGE TO [facility] ON 02-28-19, NURSE REPORT TO BE CALLED TO [facility] AT [phone]. [facility] TO ARRANGE VAN TRANSPORTATION. PRAKASH Sloan DCP- Discharge Planning Updated by [id number]: Jayro Jacobo on 02/27/19 12:[address] Patient Name: ERVIN MORRELL Encounter No: [id number] : 1940 Primary Insurance: MEDICARE A & B Anticipated DC Date: 02-27-2019 Planned Disposition: Retirement Facility External Planned Provider[facility], [facility] DCP follow-up note: CM RECEIVED ORDER FOR INPATIENT REHAB PRESCREENING. CM MET WITH PT, PT'S SPOUSE AND PT'S SON IN ROOM. PT PROVIDED PERMISSION TO DISCUSS HER CARE AND DISCHARGE PLANNING WITH AND IN PRESENCE OF HER SPOUSE AND SON (BRAYAN). CM DISCUSSED REHAB PRESCREENING ORDER, AVAILABILITY OF HOME HEALTH, REHAB SERVICES AND MEDICAL EQUIPMENT. PT WANTS REHAB AT [facility] THE GOAL IS EVENTALLY FOR SHE AND HER SPOUSE TO HAVE CORRECTION CARE AT [facility] TOGETHER. IMPORTANT MESSAGE FROM MEDICARE PROVIDED AND EXPLAINED. CHOICE SIGNED FOR [facility]. CM FAXED DISCHARGE AND REFERRAL INFORMATION TO [facility] AT [phone]. CM NOTIFIED JAKE OF [facility] AT [phone] OF REFERRAL AND PT IS DISCHARGING TODAY. CM WAITING ADMISSION DETERMINATION FROM [facility]. Jayro Jacobo, CASE MANAGEMENT Appended by Jayro Jacobo on 02/27/2019 13:56 DRAFTER MECHANICAL: CM SPOKE TO JAKE AT [facility], THEY HAVE NOT YET RECEIVED FAX. CM FAXED MANUALLY TO [facility] AT [phone]. CM FAXED ELECTRONICALLY TO [facility] FAX OF [phone]. CM WAITING ADMISSION DETERMINATION FROM [facility]. Jayro Jacobo, CASE MANAGEMENT DCP- Discharge Planning Updated by [id number]: Kayleen Romero on 02/25/19 2:[address] Patient Name: ERVIN MORRELL Admission Status: ER Accout number: [id number] Admission Date: 02-23-2019 : 1940 Admission Diagnosis: Attending: RAUL Current LOS: 2 Anticipated DC Date: Planned Disposition: Home Primary Insurance: MEDICARE A & B Discharge Planning Comments: CM MET WITH PATIENT AND HER AFTER EXPLAINING CM ROLE AND OBTAINING WRITTEN CONSENT. PATIENT AND HER ARE BOTH DEAF. I COMMUNICATED WITH THEM BY WRITING ON A NOTE PAD BACK AND FORTH. DENIES ANY NEEDS FOR EQUIPMENT, HH OR REHAB. BY LOOKING AT HER MEDICAL CHART SHE WOULD PROBABLY BENEFIT FROM REHAB OR HOME HEALTH IF SHE IS AGREEABLE. SHE IS VERY DROWSY AT THIS TIME. CM WILL FOLLOW AND ASSIST NEEDED. Special Service Officer: Kayleen Romero Appended by Kayleen Romero on 02/25/2019 15:30 DRAFTER MECHANICAL: I SPOKE WITH PATIENT'S SON BRAYAN MORRELL AND HE STATES WOULD LIKE HIS MOM TO GO TO [facility] SNF WHEN DISCHARGED. DCPIA - Discharge Planning Initial Assessment Updated by [id number]: Kayleen Romero on 02/25/19 2:33 pm * PCP VERSER * Preadmission Environment Home with Family * ADLs Independent * Additional services required to return to the preadmission environment? No * Can the patient safely return to the preadmission environment? Yes * Has this patient been hospitalized within the prior 30 days at any hospital? No Coverage Notice Reviewer: [id number] Linda Romero Notice Issued Date-Time: 02/25/2019 15:30 Notice Type: Patient Choice Letter Notice Delivered To: Family Member Relationship to Patient: Son Colorist Dyer Name: BRAYAN MORRELL Delivery Method: PHONE - Phone Teresita Days: Prior Verbal Notification: Recipient Understood Notice: Recipient Signature: Med Rec Note Co-signed by Attending: Coverage Notice Comment: VERBAL LIA FOR [facility] Reviewer: [id number] Jacobo Notice Issued Date-Time: 02/27/2019 9:50 Notice Type: IM Discharge Notice Notice Delivered To: Patient Relationship to Patient: Colorist Dyer Name: Delivery Method: HAND - Hand Delivered Teresita Days: Prior Verbal Notification: Recipient Understood Notice: Yes Recipient Signature: Yes Med Rec Note Co-signed by Attending: Coverage Notice Comment: Reviewer: [id number] Jacobo Notice Issued Date-Time: 02/27/2019 9:50 Notice Type: Patient Choice Letter Notice Delivered To: Patient Relationship to Patient: Colorist Dyer Name: Delivery Method: HAND - Hand Delivered Teresita Days: Prior Verbal Notification: Recipient Understood Notice: Yes Recipient Signature: Yes Med Rec Note Co-signed by Attending: Coverage Notice Comment: [facility] Last DP export: 02/27/19 12:59 p Patient Name: ERVIN MORRELL Page 16610 at 1509 All edits/amendments must be made on the electronic document DICTATION DATE: 02/27/19 1508 HOGSHEAD FILLER: DM 02/27/19 1508 RPT#: [id number] DC DATE: STATUS: ADM IN [facility] [address] [place] [address] END OF REPORT
[2019-02-27 18:36] VITALS: BP 138/54
[2019-02-27 20:35] VITALS: BP 131/53
[2019-02-28 00:30] VITALS: BP 151/58
--- NOTE | 2019-02-28 01:10 | NUR ---
RESTING WITH EYES CLOSED, RESPERATIONS EVEN, NO S/S DISTRESS NOTED.
[2019-02-28 04:30] VITALS: BP 152/44
[2019-02-28 06:55] LABS: BASOPHILS 0.2 % (0-2); EOSINOPHILS 2.9 % (0-7); HEMATOCRIT 24.9 % (36.0-48.0); IMMATURE GRANULOCYTES 0.6 % (0-5); LYMPHOCYTES 28.5 % (15-50); MCH 32.5 pg (26.0-34.0); MCHC 32.1 g/dL (31.0-37.0); MCV 101.2 fL (80.0-100.0); MEAN PLATELET VOLUME 9.2 fL (7.4-10.4); MONOCYTES 8.2 % (2-11); NEUTROPHILS 59.6 % (40-80); PLATELET COUNT 165 10x3/uL (130-400); RBC 2.46 10x6/uL (4.00-5.40); RDW 15.4 % (11.5-14.5); WBC 6.2 10x3/uL (4.8-10.8)
[2019-02-28 07:04] LABS: ALBUMIN 2.4 g/dL (3.4-5.0); ANION GAP 11.6 mmol/L (8-16); BILIRUBIN - TOTAL 0.4 mg/dL (0.2-1.3); CALCIUM 8.3 mg/dL (8.5-10.1); CARBON DIOXIDE 30.6 mmol/L (21.0-32.0); CREATININE - SERUM 1.6 mg/dL (0.6-1.3); MAGNESIUM - SERUM 2.1 mg/dL (1.8-2.4); POTASSIUM - SERUM 4.2 mmol/L (3.5-5.1); PROTEIN - SERUM 5.9 g/dL (6.4-8.2)
--- NOTE | 2019-02-28 08:28 | NUR ---
AM MEDS GIVEN AT THIS TIME. PT IN BED, EATING BREAKFAST, DENIES ANY NEEDS AT THIS TIME. CALL LIGHT IN REACH, SPOUSE AT BEDSIDE, NAD NOTED, WILL CONTINUE TO MONITOR.
--- NOTE | 2019-02-28 08:54 | MORECARE ---
CASE MANAGEMENT DISCHARGE SUMMARY PATIENT: ERVIN MORRELL UNIT: [id number] ADM DATE: 02/23/19 AGE: 78 : 41 SEX: F ROOM/BED: D.1659 AUTHOR: NANCI MELCHOR PHYSICIAN: REFERRING PHYSICIAN: AZAR BURGESS MD DATE OF SERVICE: 02/28/19 Discharge Plan Patient Name: ERVIN MORRELL Facility: [facility]:[place] : 1940 Planned Disposition: Retirement Facility Anticipated Discharge Date: 02/28/19 Discharge Date: Expected LOS: 5 Initial Reviewer: [id number] Initial Review Date: 02/25/2019 Generated: 02/28/19 9:54 am Comments DCP- Discharge Planning Updated by [email or web address]: Jayro Jacobo on 02/28/19 7:[address] Patient Name: ERVIN MORRELL Encounter No: [id number] : 1940 Primary Insurance: MEDICARE A & B Anticipated DC Date: 02-28-2019 Planned Disposition: Retirement Facility External Planned Provider: [facility], MEDICARE REHAB BED DCP follow-up note: CM NOTIFIED JAKE OF DISCHARGE ORDER AND FAXED DISCHARGE INFORMATION TO [facility] AT [phone]. JAKE INFORMED CM THAT [facility] WILL NOT HAVE ABSOLUTE CONFIRMATION OF ACCEPTANCE UNTIL 0930 OR 1000 TODAY AND WILL NOTIFY CM. IF AND WHEN ACCEPTED, CM TO NOTIFY NURSE. NURSE REPORT TO BE CALLED TO [facility] AT [phone]. [facility] TO ARRANGE VAN TRANSPORTATION. PRAKASH Sloan DCP- Discharge Planning Updated by [id number]: Jayro Jacobo on 02/27/19 2:[address] Patient Name: ERVIN MORRELL Encounter No: [id number] : 1940 Primary Insurance: MEDICARE A & B Anticipated DC Date: 02-28-2019 Planned Disposition: Retirement Facility External Planned Provider: [facility], MEDICARE REHAB BED DCP follow-up note: CM SPOKE TO BRAYAN, PT'S SON, WHO INFORMED CM THAT JAKE OF [facility] [facility] INFORMED HIM THAT THEY ARE NOT ABLE TO ACCEPT PT TODAY AND WILL ACCEPT TOMORROW. BRAYAN HAS NOTIFIED PT AND SPOUSE IN ROOM. CM NOTIFIED CHUN LUO. FOR DISCHARGE TO [facility] ON 02-28-19, NURSE REPORT TO BE CALLED TO [facility] AT [phone]. [facility] TO ARRANGE VAN TRANSPORTATION. PRAKASH Sloan DCP- Discharge Planning Updated by [id number]: Jayro Jacobo on 02/27/19 12:[address] Patient Name: ERVIN MORRELL Encounter No: [id number] : 1940 Primary Insurance: MEDICARE A & B Anticipated DC Date: 02-27-2019 Planned Disposition: Retirement Facility External Planned Provider: [facility], MEDICARE REHAB BED DCP follow-up note: CM RECEIVED ORDER FOR INPATIENT REHAB PRESCREENING. CM MET WITH PT, PT'S SPOUSE AND PT'S SON IN ROOM. PT PROVIDED PERMISSION TO DISCUSS HER CARE AND DISCHARGE PLANNING WITH AND IN PRESENCE OF HER SPOUSE AND SON (BRAYAN). CM DISCUSSED REHAB PRESCREENING ORDER, AVAILABILITY OF HOME HEALTH, REHAB SERVICES AND MEDICAL EQUIPMENT. PT WANTS REHAB AT [facility] THE GOAL IS EVENTALLY FOR SHE AND HER SPOUSE TO HAVE CORRECTION CARE AT [facility] TOGETHER. IMPORTANT MESSAGE FROM MEDICARE PROVIDED AND EXPLAINED. CHOICE SIGNED FOR [facility]. CM FAXED DISCHARGE AND REFERRAL INFORMATION TO [facility] AT [phone]. CM NOTIFIED JAKE OF [facility] AT [phone] OF REFERRAL AND PT IS DISCHARGING TODAY. CM WAITING ADMISSION DETERMINATION FROM [facility]. Jayro Jacobo CASE MANAGEMENT Appended by Jayro Jacobo on 02/27/2019 13:56 ASSEMBLER BODY: CM SPOKE TO JAKE AT [facility], THEY HAVE NOT YET RECEIVED FAX. CM FAXED MANUALLY TO [facility] AT [phone]. CM FAXED ELECTRONICALLY TO [facility] FAX OF [phone]. CM WAITING ADMISSION DETERMINATION FROM [facility] PRAKASH Sloan DCP- Discharge Planning Updated by [id number]: Kayleen Romero on 02/25/19 2:[address] Patient Name: ERVIN MORRELL Admission Status: ER Accout number: [id number] Admission Date: 02-23-2019 : 1940 Admission Diagnosis: Attending: RAUL Current LOS: 2 Anticipated DC Date: Planned Disposition: Home Primary Insurance: MEDICARE A & B Discharge Planning Comments: CM MET WITH PATIENT AND HER AFTER EXPLAINING CM ROLE AND OBTAINING WRITTEN CONSENT. PATIENT AND HER ARE BOTH DEAF. I COMMUNICATED WITH THEM BY WRITING ON A NOTE PAD BACK AND FORTH. DENIES ANY NEEDS FOR EQUIPMENT, HH OR REHAB. BY LOOKING AT HER MEDICAL CHART SHE WOULD PROBABLY BENEFIT FROM REHAB OR HOME HEALTH IF SHE IS AGREEABLE. SHE IS VERY DROWSY AT THIS TIME. CM WILL FOLLOW AND ASSIST NEEDED. Court Stenographer: Kayleen Romero Appended by Kayleen Romero on 02/25/2019 15:30 ASSEMBLER BODY: I SPOKE WITH PATIENT'S SON BRAYAN MORRELL AND HE STATES WOULD LIKE HIS MOM TO GO TO [facility] WHEN DISCHARGED. DCPIA - Discharge Planning Initial Assessment Updated by [id number]: Kayleen Romero on 02/25/19 2:33 pm * PCP VERSER * Preadmission Environment Home with Family * ADLs Independent * Additional services required to return to the preadmission environment? No * Can the patient safely return to the preadmission environment? Yes * Has this patient been hospitalized within the prior 30 days at any hospital? No Coverage Notice Reviewer: [id number] - Kayleen Romero Notice Issued Date-Time: 02/25/2019 15:30 Notice Type: Patient Choice Letter Notice Delivered To: Family Member Relationship to Patient: Son Conference Planning Manager Name: BRAYAN MORRELL Delivery Method: PHONE - Phone Teresita Days: Prior Verbal Notification: Recipient Understood Notice: Recipient Signature: Med Rec Note Co-signed by Attending: Coverage Notice Comment: VERBAL LIA FOR [facility] Reviewer: [id number] Linda Jacobo Notice Issued Date-Time: 02/27/2019 9:50 Notice Type: IM Discharge Notice Notice Delivered To: Patient Relationship to Patient: Conference Planning Manager Name: Delivery Method: HAND - Hand Delivered Teresita Days: Prior Verbal Notification: Recipient Understood Notice: Yes Recipient Signature: Yes Med Rec Note Co-signed by Attending: Coverage Notice Comment: Reviewer: [id number] Linda Jacobo Notice Issued Date-Time: 02/27/2019 9:50 Notice Type: Patient Choice Letter Notice Delivered To: Patient Relationship to Patient: Conference Planning Manager Name: Delivery Method: HAND - Hand Delivered Teresita Days: Prior Verbal Notification: Recipient Understood Notice: Yes Recipient Signature: Yes Med Rec Note Co-signed by Attending: Coverage Notice Comment: [facility] Last DP export: 02/27/19 2:09 p Patient Name: ERVIN MORRELL Page 14177 at 0854 All edits/amendments must be made on the electronic document DICTATION DATE: 02/28/19853 BLOCK STACKER: MIKEL 02/28/19853 RPT#: [id number] DC DATE: STATUS: ADM IN [facility] [address] [place] [address] END OF REPORT
[2019-02-28 09:24] VITALS: BP 170/56
--- NOTE | 2019-02-28 10:08 | MORECARE ---
CASE MANAGEMENT DISCHARGE SUMMARY PATIENT: ERVIN MORRELL UNIT: [id number] ADM DATE: 02/23/19 AGE: 78 : 42 SEX: F ROOM/BED: D.5309 AUTHOR: NANCI MELCHOR PHYSICIAN: REFERRING PHYSICIAN: AZAR BURGESS MD DATE OF SERVICE: 02/28/19 Discharge Plan Patient Name: ERVIN MORRELL Facility: [facility]:[place] : 1940 Planned Disposition: [facility] Facility Anticipated Discharge Date: 02/28/19 Discharge Date: Expected LOS: 5 Initial Reviewer: [email or web address] Initial Review Date: 02/25/2019 Generated: 02/28/19 11:07 am Comments DCP- Discharge Planning Updated by [id number]: Jayro Jacobo on 02/28/19 9:[address] Patient Name: ERVIN MORRELL Encounter No: [id number] : 1940 Primary Insurance: MEDICARE A & B Anticipated DC Date: 02-28-2019 Planned Disposition: [facility] Facility External Planned Provider: [facility], MEDICARE REHAB BED DCP follow-up note: CM SPOKE TO BRAYAN, PT'S SON, WHO INFORMED CM THAT PT HAS BEEN ACCEPTED AT [facility] FOR REHAB. BRAYAN WILL TEACHER VOCAL BOTH PT AND PT'S SPOUSE FOR TRANSPORT TODAY TO [facility] AT ABOUT 1130 AM. COLD FOOD PACKER NURSE NOTIFIED. NURSE REPORT TO BE CALLED TO [facility] AT [phone]. PT'S SON TO TRANSPORT TO REHAB TODAY AT ABOUT 1130AM. Jayro Jacobo, PRAKASH CHAVARRIA DCP- Discharge Planning Updated by [id number]: Jayro Jacobo on 02/28/19 7:[address] Patient Name: ERVIN MORRELL Encounter No: [id number] : 1940 Primary Insurance: MEDICARE A & B Anticipated DC Date: 02-28-2019 Planned Disposition: [facility] Facility External Planned Provider: [facility], MEDICARE REHAB BED DCP follow-up note: CM NOTIFIED JAKE OF DISCHARGE ORDER AND FAXED DISCHARGE INFORMATION TO [facility] AT [phone]. JAKE INFORMED CM THAT [facility] WILL NOT HAVE ABSOLUTE CONFIRMATION OF ACCEPTANCE UNTIL 0930 OR 1000 TODAY AND WILL NOTIFY CM. IF AND WHEN ACCEPTED, CM TO NOTIFY NURSE. NURSE REPORT TO BE CALLED TO [facility] AT [phone]. [facility] TO ARRANGE VAN TRANSPORTATION. Jayro Jacobo CASE MANAGEMENT DCP- Discharge Planning Updated by [id number]: Jayro Jacobo on 02/27/19 2:[address] Patient Name: ERVIN MORRELL Encounter No: [id number] : 1940 Primary Insurance: MEDICARE A & B Anticipated DC Date: 02-28-2019 Planned Disposition: [facility] Facility External Planned Provider: [facility], MEDICARE REHAB BED DCP follow-up note: CM SPOKE TO BRAYAN, PT'S SON, WHO INFORMED CM THAT JAKE OF [facility] INFORMED HIM THAT THEY ARE NOT ABLE TO ACCEPT PT TODAY AND WILL ACCEPT TOMORROW. BRAYAN HAS NOTIFIED PT AND SPOUSE IN ROOM. CM NOTIFIED CHUN LUO. FOR DISCHARGE TO [facility] ON 02-28-19, NURSE REPORT TO BE CALLED TO [facility] AT [phone]. [facility] TO ARRANGE VAN TRANSPORTATION. Jayro Jacobo CASE MANAGEMENT DCP- Discharge Planning Updated by [id number]: Jayro Jacobo on 02/27/19 12:[address] Patient Name: ERVIN MORRELL Encounter No: [id number] : 1940 Primary Insurance: MEDICARE A & B Anticipated DC Date: 02-27-2019 Planned Disposition: [facility] Facility External Planned Provider: [facility], MEDICARE REHAB BED DCP follow-up note: CM RECEIVED ORDER FOR INPATIENT REHAB PRESCREENING. CM MET WITH PT, PT'S SPOUSE AND PT'S SON IN ROOM. PT PROVIDED PERMISSION TO DISCUSS HER CARE AND DISCHARGE PLANNING WITH AND IN PRESENCE OF HER SPOUSE AND SON (BRAYAN). CM DISCUSSED REHAB PRESCREENING ORDER, AVAILABILITY OF HOME HEALTH, REHAB SERVICES AND MEDICAL EQUIPMENT. PT WANTS REHAB AT [facility] THE GOAL IS EVENTALLY FOR SHE AND HER SPOUSE TO HAVE [facility] CARE AT [facility] TOGETHER. IMPORTANT MESSAGE FROM MEDICARE PROVIDED AND EXPLAINED. CHOICE SIGNED FOR [facility]. CM FAXED DISCHARGE AND REFERRAL INFORMATION TO [facility] AT [phone]. CM NOTIFIED JAKE OF [facility] AT [phone] OF REFERRAL AND PT IS DISCHARGING TODAY. CM WAITING ADMISSION DETERMINATION FROM [facility]. Jayro Jcaobo, CASE MANAGEMENT Appended by Jayro Jacobo on 02/27/2019 13:56 RADIO INSTALLER AUTOMOBILE: CM SPOKE TO JAKE AT [facility], THEY HAVE NOT YET RECEIVED FAX. CM FAXED MANUALLY TO [facility] AT [phone]. CM FAXED ELECTRONICALLY TO [facility] OF [phone]. CM WAITING ADMISSION DETERMINATION FROM [facility]. Jayro Jacobo CASE MANAGEMENT DCP- Discharge Planning Updated by [id number]: Kayleen Romero on 02/25/19 2:[address] Patient Name: ERVIN MORRELL Admission Status: ER Accout number: [id number] Admission Date: 02-23-2019 : 1940 Admission Diagnosis: Attending: RAUL Current LOS: 2 Anticipated DC Date: Planned Disposition: Home Primary Insurance: MEDICARE A & B Discharge Planning Comments: CM MET WITH PATIENT AND HER AFTER EXPLAINING CM ROLE AND OBTAINING WRITTEN CONSENT. PATIENT AND HER ARE BOTH DEAF. I COMMUNICATED WITH THEM BY WRITING ON A NOTE PAD BACK AND FORTH. DENIES ANY NEEDS FOR EQUIPMENT, HH OR REHAB. BY LOOKING AT HER MEDICAL CHART SHE WOULD PROBABLY BENEFIT FROM REHAB OR HOME HEALTH IF SHE IS AGREEABLE. SHE IS VERY DROWSY AT THIS TIME. CM WILL FOLLOW AND ASSIST NEEDED. Chief Investment Officer: Kayleen Romero Appended by Kayleen Romero on 02/25/2019 15:30 RADIO INSTALLER AUTOMOBILE: I SPOKE WITH PATIENT'S SON BRAYAN MORRELL AND HE STATES WOULD LIKE HIS MOM TO GO TO [facility] SNF WHEN DISCHARGED. DCPIA - Discharge Planning Initial Assessment Updated by [email or web address]: Kayleen Romero on 02/25/19 2:33 pm * PCP VERSER * Preadmission Environment Home with Family * ADLs Independent * Additional services required to return to the preadmission environment? No * Can the patient safely return to the preadmission environment? Yes * Has this patient been hospitalized within the prior 30 days at any hospital? No Coverage Notice Reviewer: [id number] - Kayleen Romero Notice Issued Date-Time: 02/25/2019 15:30 Notice Type: Patient Choice Letter Notice Delivered To: Family Member Relationship to Patient: Son Tree Tapping Laborer Name: BRAYAN MORRELL Delivery Method: PHONE - Phone Teresita Days: Prior Verbal Notification: Recipient Understood Notice: Recipient Signature: Med Rec Note Co-signed by Attending: Coverage Notice Comment: VERBAL LIA FOR [facility]WNA RUI[facility] Reviewer: [id number] Jacobo Notice Issued Date-Time: 02/27/2019 9:50 Notice Type: IM Discharge Notice Notice Delivered To: Patient Relationship to Patient: Tree Tapping Laborer Name: Delivery Method: HAND - Hand Delivered Teresita Days: Prior Verbal Notification: Recipient Understood Notice: Yes Recipient Signature: Yes Med Rec Note Co-signed by Attending: Coverage Notice Comment: Reviewer: [id number] Jacobo Notice Issued Date-Time: 02/27/2019 9:50 Notice Type: Patient Choice Letter Notice Delivered To: Patient Relationship to Patient: Tree Tapping Laborer Name: Delivery Method: HAND - Hand Delivered Teresita Days: Prior Verbal Notification: Recipient Understood Notice: Yes Recipient Signature: Yes Med Rec Note Co-signed by Attending: Coverage Notice Comment: [facility]UI[facility] Last DP export: 02/28/19 7:54 a Patient Name: ERVIN MORRELL Page [id number] at 1008 All edits/amendments must be made on the electronic document DICTATION DATE: 02/28/19 1007 PINKED EDGE SEWING MACHINE OPERATOR: MIKEL 02/28/19 1007 RPT#: [id number] DC DATE: STATUS: ADM IN [facility] [address] [place] [address] END OF REPORT
--- NOTE | 2019-02-28 10:26 | NUR ---
1011- CALLED DAWNA RUIZ AND GAVE REPORT TO CHELA. 1025- PROVIDED VERBAL AND WRITTEN DISCHARGE TEACHING TO PT AND AT BEDSIDE. D/C LT UPPPER ARM IV WITH CATHETER TIP INTACT. REMOVED HEART MONITOR AND TAKEN TO SURVEYOR OIL WELL DIRECTIONALAcosta YOUNG WILL BE HERE TO PICK PT UP AROUND 11.
--- NOTE | 2019-02-28 11:16 | NUR ---
PT LEFT UNIT VIA WHEELCHAIR, WITH ALL BELONGINGS, ACCOMPANIED BY , NAD NOTED.
== END 2019-02-28 11:17 | DRG 689 ==
LOC: D.ER 22:15 → D.M2 02-23 01:58
PROVIDERS: Emergency Medicine; ADMIT Family Medicine; ATTEND Family Medicine
DX: N39.0 Urinary tract infection, site not specified (principal); G92 Toxic encephalopathy; N17.9 Acute kidney failure, unspecified; H91.93 Unspecified hearing loss, bilateral; I10 Essential (primary) hypertension; K21.9 Gastro-esophageal reflux disease without esophagitis; E11.65 Type 2 diabetes mellitus with hyperglycemia; I25.10 Atherosclerotic heart disease of native coronary artery without angina pectoris; E03.9 Hypothyroidism, unspecified; J45.909 Unspecified asthma, uncomplicated; M17.0 Bilateral primary osteoarthritis of knee; D53.9 Nutritional anemia, unspecified; B96.20 Unspecified Escherichia coli [E. coli] as the cause of diseases classified elsewhere; E86.0 Dehydration; K59.00 Constipation, unspecified